=== PATIENT | male | born 1955 | race Caucasian/White ===

== ENCOUNTER 2017-02-19 10:54 | Emergency (ER) | payer SELFPAY ==
[2017-02-19 11:07] VITALS: BP 125/69
--- NOTE | 2017-02-19 11:53 | ER Document Report ---
HPI - HPI Patient complains to provider of: right heel pain Pain Level: 4 Context: 61 yo male c/o pain to right heel x 1 month. pt felt a "snap" in heel while walking on a trail. pt was wearing work boots. denies any foreign body penetrating boot. denies twisting ankle. painful to bear weight on heel. denies swelling or erythema. no hx/o gout Associated Symptoms: None Exacerbated by: Walking Relieved by: Denies Similar symptoms previously: No Recently seen / treated by doctor: No - ROS Systems Reviewed and Negative: Yes All other systems reviewed and negative - CARDIOVASCULAR Cardiovascular: DENIES: Chest pain - DERM Skin Color: Normal Past Medical History - General Information source: Patient - Social History Smoking Status: Current Some Day Smoker Chew tobacco use (# tins/day): No Frequency of alcohol use: None Drug Abuse: None Lives with: Family Family History: Reviewed & Not Pertinent Patient has suicidal ideation: No Patient has homicidal ideation: No - Past Medical History Cardiac Medical History: Reports: Hx Heart Attack - x2 2005 Renal/ Medical History: Denies: Hx Peritoneal Dialysis Vertical Provider Document - CONSTITUTIONAL Agree With Documented VS: Yes Exam Limitations: No Limitations General Appearance: WD/WN, No Apparent Distress - INFECTION CONTROL TRAVEL OUTSIDE OF THE [place] IN LAST 30 DAYS: No - HEENT HEENT: Atraumatic, PERRLA - NECK Neck: Normal Inspection, Supple - RESPIRATORY Respiratory: Breath Sounds Normal, No Respiratory Distress O2 Sat by Pulse Oximetry: 95 - CARDIOVASCULAR Cardiovascular: Regular Rate, Regular Rhythm - MUSCULOSKELETAL/EXTREMETIES Musculoskeletal/Extremeties: Tender - right mid plantar heel. no erythema or edema Course - Re-evaluation Re-evalutation: 02/19/17 12:22 xray showing + heel spur which is consistant with pain. xray reviewed with patient. recommend conservative treatment with topical analgesics, ibuprofen and heel cushion inserts. further evaluation by podiatry recommended. pt agreeable with plan - Vital Signs Vital signs: Temp Pulse Resp BP Pulse Ox 97.4 F 59 L 17 125/69 95 02/19/17 11:01 02/19/17 11:01 02/19/17 11:01 02/19/17 11:01 02/19/17 11:01 Discharge - Discharge Clinical Impression: Heel pain Qualifiers: Laterality: right Qualified Code(s): M79.671 - Pain in right foot Heel spur Qualifiers: Laterality: right Qualified Code(s): M77.31 - Calcaneal spur, right foot Condition: Stable Disposition: HOME, SELF-CARE Instructions: Plantar Fasciitis or Heel Spur ([facility]), Exercises for the Foot Muscles ([facility]), Use of Cshh-Kws-Ggrwkzx Ibuprofen ([facility]) Additional Instructions: recommend further evaluation by podiatry may use OTC Aspercreme for discomfort recommend shoe inserts for heel cushion Ibuprofen for pain and inflammation Forms: Return to Work Referrals: LINDSEY HART DPM [ACTIVE STAFF] - Follow up as needed NOLA GASTON DPM [ACTIVE STAFF] - Follow up as needed
--- NOTE | 2017-02-19 12:14 | RADIOLOGY REPORT (SQ) ---
EXAM DESCRIPTION: OS CALCIS/HEEL RIGHT COMPLETED DATE/TIME: 02/19/2017 12:02 pm REASON FOR STUDY: pain to heel x 1 month COMPARISON: None. NUMBER OF VIEWS: Two views. TECHNIQUE: Plantar and lateral images acquired of the right calcaneous. LIMITATIONS: None. FINDINGS: MINERALIZATION: Normal. BONES: No acute fracture or dislocation. Plantar calcaneal spur. No worrisome bone lesions. JOINTS: No effusions. SOFT TISSUES: No soft tissue swelling. No foreign body. OTHER: No other significant finding. IMPRESSION: HEEL SPUR. NO ACUTE FINDINGS. TECHNICAL DOCUMENTATION: JOB ID: [id number] [facility]- All Rights Reserved
== END 2017-02-19 12:33 | disposition home or self-care (01) ==
LOC: ER 10:54
DX: M77.31 Calcaneal spur, right foot (principal); F17.200 Nicotine dependence, unspecified, uncomplicated; I25.2 Old myocardial infarction
CPT/HCPCS: 99283